=== PATIENT | male | born 1950 | race Caucasian/White ===

== ENCOUNTER → 2016-12-13 | Outpatient (CLI) | payer OTHER ==
--- NOTE | 2016-12-13 19:46 | DX ---
Sacroiliac Joints-3 Views Indication: Low back pain. Technique: AP and bilateral oblique views. Findings: The normally mineralized bones are anatomically aligned. No fracture or bone lesion. 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 No erosive arthr opathy. Minimal degenerative disk disease is present at the lumbosacral junction. Impression: 1. No erosive sacroiliitis. 2. Minimal degenerative arthropathy.
== END ==
LOC: GIMAGING 09:58
PROVIDERS: ATTEND Family Medicine
DX: M54.5 Low back pain (principal); G89.29 Other chronic pain
CPT/HCPCS: 72200-PO

== ENCOUNTER → 2017-01-15 | Outpatient (CLI) | payer OTHER | LOC: GIMAGING 11:04 | PROVIDERS: ATTEND Nurse Practitioner Acute Care | DX: M25.511 Pain in right shoulder (principal) | CPT/HCPCS: 73030-PO ==

== ENCOUNTER → 2017-02-07 | Outpatient (CLI) | payer OTHER | LOC: FIMAGING 09:51 | PROVIDERS: ATTEND Nurse Practitioner Acute Care | DX: S46.811A Strain of other muscles, fascia and tendons at shoulder and upper arm level, right arm, initial encounter (principal); M75.101 Unspecified rotator cuff tear or rupture of right shoulder, not specified as traumatic; S43.431A Superior glenoid labrum lesion of right shoulder, initial encounter ==

== ENCOUNTER → 2017-09-05 | Outpatient (CLI) | payer OTHER | LOC: BMCIMAGING 10:34 | PROVIDERS: ATTEND Physician Assistant | DX: M17.0 Bilateral primary osteoarthritis of knee (principal) ==

== ENCOUNTER → 2017-09-22 | Outpatient (CLI) | payer OTHER | LOC: FIMAGING 08:11 | PROVIDERS: ATTEND Orthopaedic Surgery | DX: Z01.818 Encounter for other preprocedural examination (principal); M17.11 Unilateral primary osteoarthritis, right knee ==

== ENCOUNTER → 2017-10-03 | Outpatient (CLI) | payer OTHER | LOC: FIMAGING 14:29 | PROVIDERS: ATTEND Orthopaedic Surgery | DX: Z01.818 Encounter for other preprocedural examination (principal); M17.12 Unilateral primary osteoarthritis, left knee ==

== ENCOUNTER → 2018-02-12 | Outpatient (CLI) | payer OTHER | LOC: BHLMT 09:15 | PROVIDERS: ATTEND Internal Medicine Interventional Cardiology | DX: I49.3 Ventricular premature depolarization (principal); I10 Essential (primary) hypertension | CPT/HCPCS: 93225-PO; 93226-PO; 93306-PO ==

== ENCOUNTER → 2018-02-17 | Outpatient (CLI) | payer OTHER | LOC: FIMAGING 13:22 | PROVIDERS: ATTEND Physician Assistant | DX: Z01.818 Encounter for other preprocedural examination (principal); M17.11 Unilateral primary osteoarthritis, right knee ==

== ENCOUNTER → 2018-10-21 | Outpatient (CLI) | payer OTHER | END | disposition home or self-care (01) | LOC: GIMAGING 17:07 | PROVIDERS: ATTEND Nurse Practitioner Acute Care | DX: M25.532 Pain in left wrist (principal) | CPT/HCPCS: 73110-PO ==

== ENCOUNTER → 2019-02-01 | Outpatient (CLI) | payer OTHER | LOC: BHFA 13:00 | PROVIDERS: ATTEND Internal Medicine Cardiovascular Disease | DX: R07.9 Chest pain, unspecified (principal); R06.02 Shortness of breath; I49.3 Ventricular premature depolarization | CPT/HCPCS: 78452; 93017; A9500; J2785 ==

== ENCOUNTER → 2019-02-02 | Outpatient (CLI) | payer OTHER | LOC: BHCLAF 14:00 | PROVIDERS: ATTEND Internal Medicine Cardiovascular Disease | DX: R06.02 Shortness of breath (principal); R07.9 Chest pain, unspecified; R00.2 Palpitations | CPT/HCPCS: 93306-PO ==

== ENCOUNTER 2019-02-19 07:20 | Day surgery (SDC) | payer OTHER ==
[2019-02-19] MEDS ORDERED: ATROPINE SULFATE 1 MG/10 ML SYR IVP ONE (07:23)
[2019-02-19] MEDS ORDERED: NS 1,000 ML IV ONE (07:23)
[2019-02-19] MEDS ORDERED: BENZOCAINE UNIT DOSE SPRAY HURRICAINE MM ONE (07:23)
[2019-02-19] MEDS ORDERED: fentaNYL 100 MCG/2 ML INJ IVP ONE (07:23)
[2019-02-19] MEDS ORDERED: MIDAZOLAM 2 MG/2 ML VIAL IVP ONE (07:23)
[2019-02-19 08:14] LABS: PLATELET COUNT 210 10^3/uL (150-400)
[2019-02-19 08:32] LABS: INR 1.07 (0.83-1.16); PROTIME(PATIENT) 13.5 SEC (12.0-15.0)
[2019-02-19] MEDS ORDERED: LIDOCAINE 1% 300 MG/30 ML SDV ONE (08:32)
[2019-02-19] MEDS ORDERED: MIDAZOLAM 2 MG/2 ML VIAL ONE (08:33)
[2019-02-19] MEDS ORDERED: fentaNYL 100 MCG/2 ML INJ ONE (08:33)
[2019-02-19] MEDS ORDERED: IOPAMIDOL (ISOVUE-370) 150 ML BTL IV ONE (08:34)
[2019-02-19] MEDS ORDERED: PROPOFOL 200 MG/20 ML VIAL ONE (08:57)
--- NOTE | 2019-02-19 09:01 | PDANEPAE ---
ANE History of Present Illness a. fib for AYAN/CV ANE Past Medical History - Cardiovascular History Hx Hypertension: Yes Hx Arrhythmias: Yes Hx Chest Pain: No Hx Coronary Artery / Peripheral Vascular Disease: Yes Hx CHF / Valvular Disease: No Hx Palpitations: No - Pulmonary History Hx COPD: No Hx Asthma/Reactive Airway Disease: No Hx Recent Upper Respiratory Infection: No Hx Oxygen in Use at Home: No Hx Sleep Apnea: Yes ANE Review of Systems Review of systems is: negative Review of Systems: - Exercise capacity Exercise capacity: >=4 METS ANE Patient History - Allergies Allergies/Adverse Reactions: No Known Allergies Allergy (Verified 03/09/18 11:52) - Home Medications Home medications: home medication list seen and reviewed Home Medications: Allopurinol [Allopurinol 300 MG (RX)] 300 mg PO DAILY 09/15/17 [Last Taken 02/19] Herbals/Supplements -Info Only 1 ea PO DAILY 09/15/17 [Last Taken 02/19/19] Rabeprazole Sodium [Aciphex] 20 mg PO DAILY 09/15/17 [Last Taken 02/19/19] Lisinopril [Zestril 40 mg (*)] 40 mg PO DAILY 09/22/17 [Last Taken 02/19/19] Metoprolol Succinate Xr [Toprol Xl 50 mg (*)] 50 mg PO DAILY 09/22/17 [Last Taken 02/19/19] Multivitamins [Multivitamin (*)] 1 each PO DAILY 09/22/17 [Last Taken 02/19/19] Apixaban [Eliquis] 5 mg PO BID 02/12/19 [Last Taken 02/17/19] Furosemide [Lasix 40 MG (*)] 40 mg PO DAILY 02/12/19 [Last Taken 02/18/19] Mirabegron [Myrbetriq] 50 mg PO DAILY 02/12/19 [Last Taken 02/19/19] amLODIPine BESYLATE [Norvasc 10 mg (*)] 10 mg PO DAILY 02/12/19 [Last Taken ] - Anes Hx Anes Hx: no prior problems - Smoking Hx Smoking Status: Former smoker ANE Labs/Vital Signs - Labs Result Diagrams: 02/19/19 07:40 02/19/19 07:40 - Vital Signs Height: 180 cm Weight: 122.5 kg ANE Physical Exam - Airway Neck exam: FROM Mallampati Score: Class 1 Mouth exam: dentures - Pulmonary Pulmonary: no respiratory distress - Cardiovascular Cardiovascular: regular rate and rhythym - ASA Status ASA Status: III ANE Anesthesia Plan Anesthesia Plan: GA with mask
--- NOTE | 2019-02-19 09:01 | PDHPUP ---
History & Physical Update H&P update statement: This history and physical update is based on an assessment of the patient which was completed after admission or registration (within 24 hours), but prior to the surgery/procedure. H&P update: H&P reviewed & patient examined, no change in patient's condition since H&P completed
--- NOTE | 2019-02-19 09:01 | POSTANESTH ---
Post Anesthetic Evaluation Cardiovascular Status: Normal, Stable Respiratory Status: Normal, Stable Level of Consciousness/Mental Status: Can Participate in Eval, Mildly Sleepy, Arousable Pain Control: Adequate, Prn Tx Ordered Nausea/Vomiting Control: Adequate, Prn Tx Ordered Complications Possibly Related to Anesthesia: None Noted
--- NOTE | 2019-02-19 09:37 | PDPROPOC ---
Sedation Plan of Care Sedation Plan of Care: vital signs stable, mental status noted, patient educated of risks, benefits, alternatives, patient can tolerate sedation ASA Classification: ASA 2 Planned drugs: fentanyl, midazolam Mallampati Score: Class 2 Mallampati Reference Image: Patient passed 3-3-2 rule?: Yes
--- NOTE | 2019-02-19 09:39 | PDTEE1 ---
AYAN Cardioversion Procedure Procedure: electrical cardioversion, transesophageal echo Indications: atrial fibrillation Consent: signed and in chart Anticoagulation: eliquis Procedural Details: Pads were placed in anterior-posterior position. AYAN probe was advanced and standard images obtained. There is no evidence of left atrial or left atrial appendage thrombus. Synchronized cardioversion attempt #1: 200J Results: normal sinus rhythm Conclusions: successful cardioversion
[2019-02-19] MEDS ORDERED: HYDROCODONE/APAP 5/325 TAB PO PRN (10:47)
[2019-02-19] MEDS ORDERED: ONDANSETRON 4 MG/2 ML VIAL IVP PRN (10:47)
--- NOTE | 2019-02-19 10:56 | PDDXCAT ---
Diagnostic Cath Note - . Date: 02/19/19 [employer] Machine Operator: Ortega Indication: other (New onset CHF and abnormal nuclear stress test) - Procedure Access: right groin Procedure: left heart catheterization, coronary angiography, left ventriculogram - Materials Left Heart Cath size: 6F Left Heart Cath materials: standard multipack (JL4, JR4, pigtail) - Findings-Left Heart Catheterization LM: Normal. LAD: LAD and diagonals with mild irregularities. LCX: Mild irregularities. RCA: Mild irregularities. LVEF: 25% Wall motion: Global hypokinesis. Complications: None Estimated blood loss: <50ml Closure method: Angioseal Assessment: 1) Nonischemic cardiomyopathy with severely reduced LV systolic function. 2) Mild, early coronary atherosclerotic changes.
--- NOTE | 2019-02-20 15:13 | CPEKG ---
Test Reason : OPEN Blood Pressure : / mmHG Vent. Rate : 117 BPM Atrial Rate : 123 BPM P-R Int : 122 ms QRS Dur : 104 ms QT Int : 365 ms P-R-T Axes : 000 -51 086 degrees QTc Int : 510 ms Atrial fibrillation Ventricular bigeminy Inferior infarct, old Prolonged QT interval Confirmed by Ysabel Starks ([id number]) on 02/20/2019 3:13:30 PM Referred By: Lonny Vivas Confirmed By:Ysabel Starks
--- NOTE | 2019-02-20 15:21 | CPEKG ---
Test Reason : OPEN Blood Pressure : / mmHG Vent. Rate : 087 BPM Atrial Rate : 087 BPM P-R Int : 261 ms QRS Dur : 108 ms QT Int : 423 ms P-R-T Axes : 005 -50 047 degrees QTc Int : 509 ms Sinus rhythm Ventricular trigeminy Prolonged CO interval Inferior infarct, old Prolonged QT interval Confirmed by Ysabel Starks ([id number]) on 02/20/2019 3:20:47 PM Referred By: Lonny Vivas Confirmed By:Ysabel Starks
== END 2019-02-19 15:00 | disposition home or self-care (01) ==
LOC: FCATH 07:20
PROVIDERS: ATTEND Internal Medicine Interventional Cardiology
PROC: 5A2204Z Restoration of Cardiac Rhythm, Single (ICD-10-PCS; principal; 2019-02-19)
PROC: 4A023N7 Measurement of Cardiac Sampling and Pressure, Left Heart, Percutaneous Approach (ICD-10-PCS; 2019-02-19)
PROC: B2111ZZ Fluoroscopy of Multiple Coronary Arteries using Low Osmolar Contrast (ICD-10-PCS; 2019-02-19)
PROC: B2151ZZ Fluoroscopy of Left Heart using Low Osmolar Contrast (ICD-10-PCS; 2019-02-19)
DX: I50.31 Acute diastolic (congestive) heart failure (principal); R94.39 Abnormal result of other cardiovascular function study; I10 Essential (primary) hypertension; I77.810 Thoracic aortic ectasia; I49.1 Atrial premature depolarization; I49.3 Ventricular premature depolarization; I48.1 Persistent atrial fibrillation
CPT/HCPCS: C1760; J0461; J1644; J2250; J2704; J3010; Q9967

== ENCOUNTER 2019-03-09 07:53 | Day surgery (SDC) | payer OTHER ==
[2019-03-09] MEDS ORDERED: fentaNYL 100 MCG/2 ML INJ IVP ONE (07:56)
[2019-03-09] MEDS ORDERED: MIDAZOLAM 2 MG/2 ML VIAL IVP ONE (07:56)
[2019-03-09] MEDS ORDERED: NS 500 ML IV ONE (07:56)
[2019-03-09] MEDS ORDERED: ATROPINE SULFATE 1 MG/10 ML SYR IVP ONE (07:56)
[2019-03-09 08:41] LABS: INR 1.21 (0.83-1.16); PROTIME(PATIENT) 14.8 SEC (12.0-15.0)
[2019-03-09] MEDS ORDERED: PROPOFOL 200 MG/20 ML VIAL ONE (09:29)
--- NOTE | 2019-03-09 09:42 | PDANEPAE ---
ANE History of Present Illness cv ANE Past Medical History - Cardiovascular History Hx Hypertension: Yes Hx Arrhythmias: Yes Hx Chest Pain: No Hx Coronary Artery / Peripheral Vascular Disease: Yes Hx CHF / Valvular Disease: No Hx Palpitations: No - Pulmonary History Hx COPD: No Hx Asthma/Reactive Airway Disease: No Hx Recent Upper Respiratory Infection: No Hx Oxygen in Use at Home: No Hx Sleep Apnea: Yes ANE Review of Systems Review of Systems: ANE Patient History - Allergies Allergies/Adverse Reactions: No Known Allergies Allergy (Verified 03/09/18 11:52) - Home Medications Home Medications: Allopurinol [Allopurinol 300 MG (RX)] 300 mg PO DAILY 09/15/17 [Last Taken 03/09 06:00] Herbals/Supplements -Info Only 1 ea PO DAILY 09/15/17 [Last Taken 03/09/19 06:00 ] Rabeprazole Sodium [Aciphex] 20 mg PO DAILY 09/15/17 [Last Taken 03/09/19 06:00] Lisinopril [Zestril 40 mg (*)] 40 mg PO DAILY 09/22/17 [Last Taken 03/09/19 06: 00] Metoprolol Succinate Xr [Toprol Xl 50 mg (*)] 50 mg PO DAILY 09/22/17 [Last Taken 03/09/19 06:00] Multivitamins [Multivitamin (*)] 1 each PO DAILY 09/22/17 [Last Taken 03/09/19 06:00] Apixaban [Eliquis] 5 mg PO BID 02/12/19 [Last Taken 03/09/19 06:00] Furosemide [Lasix 40 MG (*)] 40 mg PO DAILY 02/12/19 [Last Taken 03/09/19 06:00] Mirabegron [Myrbetriq] 50 mg PO DAILY 02/12/19 [Last Taken 03/09/19 06:00] amLODIPine BESYLATE [Norvasc 10 mg (*)] 10 mg PO DAILY 02/12/19 [Last Taken 05/21 06:00] Amiodarone HCl 200 mg PO DAILY 03/09/19 [Last Taken 03/09/19 06:00] Atorvastatin Calcium 20 mg PO DAILY 03/09/19 [Last Taken 03/09/19 06:00] - Smoking Hx Smoking Status: Former smoker ANE Labs/Vital Signs - Labs Result Diagrams: 03/09/19 08:20 - Vital Signs Height: 180.3 cm Weight: 125.7 kg ANE Physical Exam - Airway Neck exam: FROM Mallampati Score: Class 1 - Pulmonary Pulmonary: clear to auscultation - Cardiovascular Cardiovascular: irregularly irregular - ASA Status ASA Status: III ANE Anesthesia Plan Anesthesia Plan: GA with mask
[2019-03-09] MEDS ORDERED: NALOXONE HCL 0.4 MG/ML INJ IVP PRN (09:43)
--- NOTE | 2019-03-09 09:45 | PDTEE1 ---
AYAN Cardioversion Procedure Procedure: electrical cardioversion Indications: atrial fibrillation Consent: signed and in chart Anticoagulation: eliquis Procedural Details: Pads were placed in anterior-posterior position. No AYAN performed. Recent AYAN was negative for LA thrombus. Synchronized cardioversion attempt #1: 200J Synchronized cardioversion attempt #2: 300J Results: normal sinus rhythm Conclusions: successful cardioversion
--- NOTE | 2019-03-09 16:38 | CPEKG ---
Test Reason : OPEN Blood Pressure : / mmHG Vent. Rate : 078 BPM Atrial Rate : 084 BPM P-R Int : 132 ms QRS Dur : 108 ms QT Int : 412 ms P-R-T Axes : 000 -59 000 degrees QTc Int : 470 ms Atrial fibrillation Abnormal R-wave progression, early transition Inferior infarct, old PVC Confirmed by Aleaxndre Boyer ([id number]) on 03/09/2019 4:38:01 PM Referred By: Lonny Vivas Confirmed By:Alexandre Boyer
--- NOTE | 2019-03-09 16:41 | CPEKG ---
Test Reason : OPEN Blood Pressure : / mmHG Vent. Rate : 076 BPM Atrial Rate : 076 BPM P-R Int : 206 ms QRS Dur : 111 ms QT Int : 435 ms P-R-T Axes : -15 -54 063 degrees QTc Int : 490 ms Sinus rhythm Probable left atrial enlargement Incomplete left bundle branch block Inferior infarct, old Confirmed by Alexandre Boyer ([id number]) on 03/09/2019 4:41:07 PM Referred By: Lonny Vivas Confirmed By:Alexandre Boyer
== END 2019-03-09 10:45 | disposition home or self-care (01) ==
LOC: FCATH 07:53
PROVIDERS: ATTEND Internal Medicine Interventional Cardiology
PROC: 5A2204Z Restoration of Cardiac Rhythm, Single (ICD-10-PCS; principal; 2019-03-09)
DX: I48.1 Persistent atrial fibrillation (principal); I25.10 Atherosclerotic heart disease of native coronary artery without angina pectoris; I42.8 Other cardiomyopathies; I50.22 Chronic systolic (congestive) heart failure; I11.0 Hypertensive heart disease with heart failure; I49.3 Ventricular premature depolarization; I77.810 Thoracic aortic ectasia; E78.5 Hyperlipidemia, unspecified; K21.9 Gastro-esophageal reflux disease without esophagitis; M10.9 Gout, unspecified; E66.9 Obesity, unspecified; Z68.38 Body mass index [BMI] 38.0-38.9, adult; G47.33 Obstructive sleep apnea (adult) (pediatric); Z79.01 Long term (current) use of anticoagulants; Z85.46 Personal history of malignant neoplasm of prostate; Z87.891 Personal history of nicotine dependence; Z82.49 Family history of ischemic heart disease and other diseases of the circulatory system; Z86.010 Personal history of colon polyps
CPT/HCPCS: J2704